=== PATIENT | male | born 1980 | race Two or more races ===

== ENCOUNTER 2025-02-17 22:42 | Emergency (ER) | payer OTHER ==
[~2025-02-17] VITALS: Ht 185.4 cm; Wt 108.9 kg
[2025-02-17] MEDS ORDERED: LIDOCAINE HCL 1% 20 ML VIAL ONE (23:18)
[2025-02-17] MEDS ORDERED: NEOMY/BACITRA/POLYMYXIN B OINT UD PACKET TP ONE (23:32)
[2025-02-18] MEDS: NEOMY/BACITRA/POLYMYXIN B OINT UD PACKET TP ONE (00:04)
[2025-02-18] MEDS: LIDOCAINE HCL 1% 20 ML VIAL IJ ONE (00:04)
[2025-02-18 00:52] VITALS: BP 145/96; O2SAT 98
== END 2025-02-17 23:45 | disposition home or self-care (01) ==
LOC: ER 22:42
DX: S61.412A Laceration without foreign body of left hand, initial encounter (principal); F41.9 Anxiety disorder, unspecified; Z88.7 Allergy status to serum and vaccine; W26.0XXA Contact with knife, initial encounter; Y93.89 Activity, other specified; Y92.098 Other place in other non-institutional residence as the place of occurrence of the external cause; Y99.0 Civilian activity done for income or pay
CPT/HCPCS: 12001; 99282; J3490; A4606; A4663